=== PATIENT | female | born 1965 | race Two or more races ===

== ENCOUNTER 2022-02-22 12:39 | Emergency (ER) | payer MEDICAID ==
[~2022-02-22] VITALS: Ht 154.9 cm; Wt 70.9 kg
[2022-02-22] MEDS ORDERED: METF-1211 PO (12:51)
[2022-02-22] MEDS ORDERED: CALC-1038 PO (12:51)
[2022-02-22] MEDS ORDERED: KETOROLAC TROMETHAMINE 60 MG/2 ML VIAL IM ONE (13:45)
[2022-02-22] MEDS ORDERED: NAPR-1024 PO (15:15)
[2022-02-22 15:49] VITALS: BP 135/73
== END 2022-02-22 16:13 | disposition home or self-care (01) ==
LOC: EMS 12:42
DX: M25.461 Effusion, right knee (principal); Z79.84 Long term (current) use of oral hypoglycemic drugs; Z79.899 Other long term (current) drug therapy
CPT/HCPCS: 73562; 93971; 96372; 99284; J1885